=== PATIENT | male | born 1990 | race Two or more races ===

== ENCOUNTER 2019-05-21 19:20 | Emergency (ER) | payer SELFPAY ==
[~2019-05-21] VITALS: Ht 188 cm; Wt 85.0 kg
[2019-05-21] MEDS ORDERED: ACETAMINOPHEN 500 MG TABLET PO ONE (20:00)
[2019-05-21] MEDS ORDERED: AMOX500C PO (20:05)
--- NOTE | 2019-05-21 20:05 | PHYS DOC ---
Past Medical History Past Medical History: No Pertinent History Past Surgical History: No Surgical History Smoking Status: Never Smoker Alcohol Use: None General Adult EDM: Chief Complaint: FEVER HPI: HPI: Patient is a 29 year old male who presents with left ear pain with drainage and fever for the last 3 days. Review of Systems: Review of Systems: Constitutional: fever or chills. [] HENT: Denies nasal congestion or sore throat. Left ear pain.[] Heart Score: Risk Factors: Risk Factors: DM, Current or recent (<one month) smoker, HTN, HLP, family history of CAD, obesity. Risk Scores: Score 0 - 3: 2.5% MACE over next 6 weeks - Discharge Home Score 4 - 6: 20.3% MACE over next 6 weeks - Admit for Clinical Observation Score 7 - 10: 72.7% MACE over next 6 weeks - Early Invasive Strategies Current Medications: Current Medications Medications (Trade) Dose Ordered Sig/Mireille Start Time Stop Time Status Last Admin Dose Admin Acetaminophen (Tylenol) 1,000 mg 1X ONCE 05/21/19 20:00 05/21/19 20:01 UNV Allergies: Allergies: Allergies Coded Allergies Type Severity Reaction Last Updated Verified No Known Drug Allergies 05/21/19 No Physical Exam: PE: Constitutional: Well developed, well nourished, no acute distress, non-toxic appearance. [] HENT: Normocephalic, atraumatic, bilateral external ears normal, oropharynx moist, no oral exudates, nose normal. Bilateral ear redness with Left ear tympanic rupture with drainage. [] Eyes: PERRLA, EOMI, conjunctiva normal, no discharge. [] Neck: Normal range of motion, no tenderness, supple, no stridor. [] Cardiovascular:Heart rate regular rhythm, no murmur [] Lungs & Thorax: Bilateral breath sounds clear to auscultation [] Abdomen: Bowel sounds normal, soft, no tenderness, no masses, no pulsatile masses. [] Skin: Warm, dry, no erythema, no rash. [] Back: No tenderness, no CVA tenderness. [] Extremities: No tenderness, no cyanosis, no clubbing, ROM intact, no edema. [] Neurologic: Alert and oriented X 3, normal motor function, normal sensory function, no focal deficits noted. [] Psychologic: Affect normal, judgement normal, mood normal. [] Current Patient Data: Vital Signs: Vital Signs Date Time Temp Pulse Resp B/P (MAP) Pulse Ox O2 Delivery O2 Flow Rate FiO2 05/21/19 19:48 101.5 119 18 150/87 (108) 97 Room Air 101.5 EKG: EKG: [] Radiology/Procedures: Radiology/Procedures: [] Course & Med Decision Making: Course & Med Decision Making Pertinent Labs and Imaging studies reviewed. (See chart for details) Patient rates his pain an 8 out of 10. He is febrile. Patient did not take any medication before coming. I have ordered Tylenol for him. Bilateral ears are reddened but the left ear tympanic membrane is ruptured. There is clear drainage coming from the ear. Patient will be given a prescription for an antibiotic and educated on taking Tylenol and ibuprofen to keep his fever down. Patient follow-up with primary care doctor if needed. Lungs are clear to auscultation all lobes. Throat is pink without exudates or swelling. Patient denies any nasal congestion, chest pain, shortness of air, cough, abdominal pain, nausea, vomiting, diarrhea, headache, dizziness. [] Dragon Disclaimer: Dragon Disclaimer: This electronic medical record was generated, in whole or in part, using a voice recognition dictation system. Departure Departure Impression: Primary Impression: Otitis media Qualified Codes: H66.012 - Acute suppurative otitis media with spontaneous rupture of ear drum, left ear Disposition: HOME, SELF-CARE Condition: STABLE Referrals: NO PCP (PCP) Patient Instructions: Otitis Media, Adult Additional Instructions: Follow up with primary care provider. Drink plenty of fluids. Take Ibuprofen or tylenol for your pain and fever. Scripts Amoxicillin (AMOXICILLIN) 500 Mg Capsule 1 CAP PO BID, #20 CAP Prov: KEENAN ROSAS FLOOR ASSOCIATE 05/21/19 KEENAN ROSAS FLOOR ASSOCIATE May 21, 2019 20:05
[2019-05-21 20:15] VITALS: BP 154/86
== END 2019-05-21 20:15 | disposition home or self-care (01) ==
LOC: ER 19:20
DX: H66.012 Acute suppurative otitis media with spontaneous rupture of ear drum, left ear (principal); R50.9 Fever, unspecified
CPT/HCPCS: 99283